=== PATIENT | female | born 1945 | race Caucasian/White ===

== ENCOUNTER → 2016-08-22 | Outpatient (CLI) | payer OTHER, MEDICARE ==
--- NOTE | 2016-08-22 13:49 | DIAGNOSTIC IMAGING REPORT ---
RIGHT KNEE 1 OR 2 VIEWS CLINICAL HISTORY: B/L KNEE PAIN Right pain COMPARISON: None. DISCUSSION: Evidence for a prior total right knee arthroplasty. Evidence for transverse screws as well as a linear plate involving the left proximal and mid tibia. Moderate degenerative change patellofemoral joints are There is no evidence for soft tissue swelling. IMPRESSION: Postoperative and degenerative change. This is considered most significant involving the medial and lateral joint compartments of the left knee. Electronically signed by: Kendrick Simms M.D. 08/22/2016 1:48 PM Dictated Date/Time: 08/22/2016 1:42 PM
== END | disposition home or self-care (01) ==
LOC: C.RDSM 13:30
PROVIDERS: ATTEND Physical Medicine & Rehabilitation Sports Medicine
DX: M25.561 Pain in right knee (principal); M25.562 Pain in left knee